=== PATIENT | female | born 1975 | race Caucasian/White ===

== ENCOUNTER → 2017-11-05 17:29 | Outpatient (CLI) | payer MEDICAID, SELFPAY ==
[2017-11-05 18:38] LABS: Free T3 2.3 pg/mL (2.18-3.98); T4 Free Direct 0.89 ng/dL (0.76-1.46); Thyroid Stim Hormone (TSH) 1.01 uIU/mL (0.358-3.74)
== END ==
PROVIDERS: Visit Provider Obstetrics & Gynecology
DX: N95.1 Menopausal and female climacteric states (principal); R63.5 Abnormal weight gain
CPT/HCPCS: 84439; 84443; 84481

== ENCOUNTER → 2017-11-22 08:08 | Outpatient (CLI) | payer MEDICAID, SELFPAY ==
--- NOTE | 2017-11-22 08:12 | HPBI_ITS ---
MAMMOGRAPHY - BILATERAL SCREENING REASON FOR EXAM: Female, 42 years old. Routine annual screening examination. PERTINENT HISTORY: Grandmother with breast cancer. Aunts with breast cancer. TECHNIQUE: Digital bilateral breast altagracia (3D mammographic acquisition) in the CC and MLO projections. 2-D mediolateral oblique (MLO) and craniocaudad (CC) views of both breasts were obtained. CAD: Full Field Digital Mammography with Computer Added Detection was performed. COMPARISON: Comparison is made with prior examination dated January 19, 2016 and January 17, 2015. FINDINGS: Breast Composition: The breasts are extremely dense, which lowers the sensitivity of mammography. There are no dominant masses or suspicious calcifications. A loop recorder device is seen in the deep central medial portion of the left breast. No other significant abnormalities are identified. There has been no significant change since the prior study. HPBI/SCREENING MAMM (CAD), BILAT IMPRESSION: Stable bilateral screening mammogram. Yearly follow-up mammogram recommended. (A) ASSESSMENT CATEGORY: BIRADS Category 2: Benign. A letter regarding these results will be sent to the patient by the facility within 30 days. Approximately 10% of breast cancers are not detected by mammography. A normal mammogram should not delay biopsy of a clinically suspicious abnormality. [id number] Electronically Signed: Oscar Jimenez MD at 8:15 EDT Tel [phone], Service support ,
== END ==
PROVIDERS: Family Provider Family Medicine; PCP Family Medicine; Visit Provider Obstetrics & Gynecology
DX: Z12.31 Encounter for screening mammogram for malignant neoplasm of breast (principal)
CPT/HCPCS: 77063; 77067

== ENCOUNTER → 2018-12-28 09:18 | Outpatient (CLI) | payer OTHER, SELFPAY ==
--- NOTE | 2018-12-28 09:22 | BI_ITS ---
MAMMOGRAPHY - BILATERAL DIAGNOSTIC REASON FOR EXAM: Female, 43 years old. Nine-month history of right sided breast lumps. PERTINENT HISTORY: Aunt with breast cancer. TECHNIQUE: Digital bilateral breast altagracia (3D mammographic acquisition) in the CC and MLO projections. 2-D mediolateral oblique (MLO) and craniocaudad (CC) views of both breasts were obtained. CAD: Full Field Digital Mammography with Computer Added Detection was performed. COMPARISON: Comparison is made with prior examination dated November 22, 2017 and January 19, 2016 FINDINGS: Breast Composition: The breasts are extremely dense, which lowers the sensitivity of mammography. A loop recorder device is seen in the deep mid medial portion of the left breast. This is unchanged. There now is evidence of a well-defined bilateral breast nodules suggestive of probable cysts. Ultrasound of both breasts is recommended for further evaluation. No other significant abnormalities are identified. BI/DIAG MAMM W/CAD, BILAT IMPRESSION: Bilateral breast nodules as described more prominent on the right side. Ultrasound of both breasts is recommended for further evaluation. ASSESSMENT CATEGORY: BIRADS Category 0: Incomplete. Need additional imaging evaluation. A letter regarding these results will be sent to the patient by the facility within 30 days. Approximately 10% of breast cancers are not detected by mammography. A normal mammogram should not delay biopsy of a clinically suspicious abnormality. Electronically Signed: Oscar Jimenez, at 11:06 EDT , Service support ,
--- NOTE | 2018-12-28 09:31 | US_ITS ---
STUDY: ULTRASOUND BREAST - RIGHT REASON FOR EXAM: Female, 43 years old. Bilateral breast nodules. TECHNIQUE: Axial and longitudinal images of the RIGHT breast were performed with a high resolution ultrasound transducer. COMPARISON: Comparison is made with prior mammogram done earlier today as well as prior ultrasound of both breasts dated January 26, 2016 and January 19, 2016. FINDINGS: RIGHT Breast: Multiple cysts are seen in the right breast. The largest cyst measures 2.6 cm x 1.8 cm x 0.7 cm. This is at the 10:00 position of the breast at 2 cm from the nipple. This corresponds to the palpable abnormality. IMPRESSION: Multiple breast cysts. Routine mammographic follow-up is recommended. ASSESSMENT CATEGORY: BIRADS Category 2: Benign. A letter regarding these results will be sent to the patient by the facility within 30 days. Electronically Signed: Oscar Jimenez, at 11:08 EDT , Service support , STUDY: ULTRASOUND BREAST - LEFT REASON FOR EXAM: Female, 43 years old. Palpable lump left breast. TECHNIQUE: Axial and longitudinal images of the LEFT breast were performed with a high resolution ultrasound transducer. COMPARISON: Comparison is made with prior mammogram done earlier today as well as prior ultrasound the left breast dated January 26, 2016. FINDINGS: LEFT Breast: Multiple cysts are seen. The largest measures 1.7 cm x 1.8 cm x 0.8 cm. This is at the 2:00 position of the breast at 4 cm from the nipple. US/Breast Complete Bilateral IMPRESSION: Multiple cysts. The largest measures 1.7 cm x 1.8 cm x 0.8 cm. ASSESSMENT CATEGORY: BIRADS Category 2: Benign. A letter regarding these results will be sent to the patient by the facility within 30 days. Electronically Signed: Oscar Jimenez, at 11:09 EDT , Service support ,
== END ==
PROVIDERS: Referring Provider Obstetrics & Gynecology; Visit Provider Obstetrics & Gynecology
DX: Z12.31 Encounter for screening mammogram for malignant neoplasm of breast (principal); N63.11 Unspecified lump in the right breast, upper outer quadrant
CPT/HCPCS: 76641; 77062; 77066; G0279

== ENCOUNTER 2025-03-10 10:31 | Emergency (ER) | payer MEDICAID, SELFPAY ==
[2025-03-10 10:33] VITALS: BP 147/88; PULSE 70; RESP 14; TEMP 36.7; O2SAT 100; BMI 29.2
--- NOTE | 2025-03-10 10:44 | EDS_ITS ---
HPI History of Present Illness Chief Complaint: General Illness Narrative Narrative: Patient is a 49-year-old female who presented to the emergency department the chief complaint of not feeling well overall. Patient states that she was in her IOP class and she noted that she told the individuals there that she had not been feeling well therefore they advised her to come here to the emergency department. Patient states that yesterday she woke up and felt like her left arm was heavier than normal but notes that she attributed this to her arms always having weird numbness and tingling secondary to disc issues in her neck she states. She states that she also has been having some left sided rib/flank pain and elevated blood pressure recently. Patient states that she had a Vivitrol injection back on the sixth of this month and states that ever since then she has had a headache that has been constant. States that this is unchanged and does not want a thing for her headache here in the emergency department. Patient denies any history of blood clots denies any recent travel history. [facility] Home Medications ?Medication ?Instructions ?Recorded ?Last Taken ?Type diluent,naltrexone microsphere IM QMONTH 03/10/25 06/0 03/09 History Allergy/AdvReac Type Severity Reaction Status Date / Time cephalexin monohydrate (From Allergy thinks a Verified 03/10/25 10:33 Keflex) Rash metronidazole (From Flagyl) Allergy Unknown Verified 03/10/25 10:33 Sulfa (Sulfonamide Allergy thinks a Verified 03/10/25 10:33 Antibiotics) rash Social History Smoking Status: Current every day smoker tobacco type: cigarettes ROS ROS ED ROS Narrative Constitutional: Denies fevers, chills, lightheadedness, dizziness Eyes: Denies double vision blurry vision changes vision Cardiovascular: Denies chest pain or palpitations Respiratory: Denies coughing wheezing shortness of breath Abdomen: Denies abdominal pain nausea vomit diarrhea : Denies urinary symptoms Neurological: Denies numbness, wheeze, tingling Musculoskeletal: Denies back pain Skin: Denies any rashes or lesions EXAM Physical Exam Narrative Exam Narrative: General: Patient was lying in bed rest comfortably do not appear to be acute distress Head: Atraumatic, normocephalic Eyes: PERRL bilaterally, EOMI bilateral, no conjunctival injection noted Neck: Soft, supple, trachea midline Cardiovascular: Regular in rhythm no murmurs gallops rubs noted Respiratory: Clear to auscultation bilaterally no rales rhonchi or wheezes noted Abdomen: Soft, nondistended, no tenderness palpation Extremities: +5/5 strength noted in the bilateral upper and lower extremities, radial pulses +2/4 in the bilateral extremities, no pedal edema on exam Neurological: Patient following commands knew that she was at [facility] year is 2024 sensation grossly intact. Patient completed finger-nose testing bilaterally without any difficulty. NIH of 0 GCS 15 Skin: Warm, dry, tact no rashes or lesions noted Const Vital Signs: 03/10/25 10:33 03/10/25 10:43 03/10/25 11:11 Temperature 98.1 F Temperature Source Oral Pulse Rate 70 Respiratory Rate 14 Respiratory Effort Normal Non-Labored Respiratory Pattern Normal Blood Pressure 147/88 H Blood Pressure Mean 107 Pulse Ox 100 Oxygen Delivery Method Room Air Room Air 03/10/25 11:17 03/10/25 13:00 Temperature Temperature Source Pulse Rate 81 76 Respiratory Rate 16 14 Respiratory Effort Respiratory Pattern Blood Pressure 134/93 H 119/79 Blood Pressure Mean 106 92 Pulse Ox 99 98 Oxygen Delivery Method Room Air Room Air MDM MDM MDM Narrative Medical decision making narrative: Patient is a 41-year-old female who presented to the emergency department the chief complaint of left rib/back pain left arm heaviness and not feeling well overall with concern of hypertension for the last several days as well. On the differential diagnosis includes but not limited to intracranial hemorrhage, ischemic stroke, central venous sinus thrombosis, ACS, cervical radiculopathy. Once workup is obtained reviewed she will be reevaluated. Once again the patient stated that she woke up with her symptoms yesterday morning and are unchanged. Far[place]ault Score (Revised) for Pulmonary Embolism from [email or web address] on 03/10/2025 All calculations should be rechecked by clinician prior to use RESULT SUMMARY: 3 points Low risk group: 7-9% incidence of PE from several studies. INPUTS: Age >65 ?> 0 = No Previous DVT or PE ?> 0 = No Surgery (under general anesthesia) or lower limb fracture in past month ?> 0 = No Active malignant condition ?> 0 = No Unilateral lower limb pain ?> 0 = No Hemoptysis ?> 0 = No Heart rate ?> 3 = 75-94 Pain on lower limb palpation and unilateral edema ?> 0 = No Patient's CBC reviewed showed no evidence of cytosis white blood count 10.1, he was 14, plate count within to be 400. Patient sodium was normal at 139, potassium of 4.5, creatinine normal at 0.76. Patient's AST and ALT are 21 and 18 respectively, troponin was less than 6 with a delta troponin of less than 6. Patient lipase normal at 19. Patient's EKG reviewed showed sinus rhythm with a rate of 78 bpm with IN interval 152. Patient's chest x-ray reviewed by myself and by radiology showed no acute cardiopulmonary processes. Patient CT head and brain without contrast showed no acute intracranial pathology. Reevaluation the patient she is feeling better she would like to go home at this point time. Patient was vies to return with worsening symptoms or any concerns. She is vies follow-up with her doctor in outpatient setting all question concerns answered she was discharged home in stable condition Lab Data Labs: Laboratory Results - last 24 hr 03/10/25 03/10/25 03/10/25 10:55 11:35 12:35 WBC 10.1 RBC 4.55 Hgb 14.0 Hct 41.8 MCV 91.9 MCH 30.8 MCHC 33.5 RDW Std Deviation 44.6 H RDW Coeff of Lauren 13.2 Plt Count 400 MPV 9.0 Immature Gran % (Auto) 0.600 Neut % (Auto) 66.5 Lymph % (Auto) 24.4 Mcdowell % (Auto) 5.3 Eos % (Auto) 2.4 Baso % (Auto) 0.8 Absolute Neuts (auto) 6.7 Absolute Lymphs (auto) 2.45 Nucleated RBC % 0 Sodium 139 Potassium 4.5 Chloride 104 Carbon Dioxide 24.2 Anion Gap 11 BUN 14 Creatinine 0.76 Estim Creat Clear Calc 101.31 Est GFR (MDRD) Non-Af 96 BUN/Creatinine Ratio 18.0 Glucose 104 H Calcium 9.5 Total Bilirubin 0.48 Direct Bilirubin 0.17 AST 21 ALT 18 Alkaline Phosphatase 62 Troponin T High Sens < 6 Troponin T Hi Sens 2 Hr < 6 Total Protein 7.2 Albumin 4.4 Globulin 2.8 Lipase 19 Radiography Diagnostic Testing: Clinical Impression(s) from Imaging Studies Brain CT 03/10/25 11:26 IMPRESSION: No acute intracranial pathology. Results were communicated to Dr. Tim by Dr. Beaver at the time of dictation. Reading [facility] Chest X-Ray 03/10/25 11:28 IMPRESSION: Lungs appear clear throughout. No pleural effusion or pneumothorax is noted. The cardiomediastinal silhouette is within the normal range. No significant osseous abnormality is seen. Negative examination. Reading Location: [place] [id number] Discharge Plan Triage Chief Complaint: General Illness ED Provider: Santos Tim Dx/Rx/DC Orders Clinical Impression: Chest pain Prescriptions: No Action diluent,naltrexone microsphere [Diluent For Vivitrol] IM QMONTH Primary Care Provider: Care Physician,No Primary Referrals: Care Physician,No Primary [Primary Care Provider] - Erum Moore, [employer] [[facility]] - Activity Restrictions/Additional Instructions: Follow-up with your doctor in the outpatient setting. Return with worsening symptoms or other concerns. Your blood work did not show any acute findings today here and your CT of your head and your chest x-ray did not show any acute findings either. Print Language: Albanian Disposition Disposition: Home, Self Care
[2025-03-10] MEDS: 0.9% Normal Saline (1000mL) 1,000 ML 999 ML IV (11:07)
[2025-03-10 11:17] VITALS: BP 134/93; PULSE 81; RESP 16; O2SAT 99
--- NOTE | 2025-03-10 11:26 | CT_ITS ---
EXAM: NONCONTRAST CT SCAN OF THE HEAD CLINICAL HISTORY: Left arm heaviness COMPARISON: None TECHNIQUE: Serial axial series through the head were obtained without contrast. 2-D coronal and sagittal reformats were then obtained. DLP: 846.73 mGycm FINDINGS: Brain: There is no acute large territorial infarct, intracranial hemorrhage, midline shift or mass effect. The sella and pineal gland regions appear unremarkable. There is no evidence of cerebellar tonsillar herniation. Ventricles: There is no acute hydrocephalus. Basilar cisterns are patent. Paranasal sinuses: Well-aerated Mastoid air cells: Well-aerated. Calvarium: The bony calvarium is intact. Orbits: The bilateral globes are symmetric, without retrobulbar compressive mass lesion or hemorrhage. CT/Brain/Head without Contrast IMPRESSION: No acute intracranial pathology. Results were communicated to Dr. Tim by Dr. Beaver at the time of dictat ion. Reading Location: [facility]
--- NOTE | 2025-03-10 11:28 | RAD_ITS ---
PROCEDURE: CHEST 1 VIEW (PORTABLE) 03/10/2025 REASON FOR EXAM: CHEST PAIN TECHNIQUE: Frontal view of the chest. COMPARISON: None provided. RAD/Chest 1 View (Portable) IMPRESSION: Lungs appear clear throughout. No pleural effusion or pneumothorax is noted. The cardiomediastinal silhouette is within the normal range. No significant osseous abnormality is seen. Negative examination. Reading Location: [place] [id number]
[2025-03-10 11:32] LABS: AST(SGOT) 21 U/L (<=31); Alanine Aminotransfer ALT/SGPT 18 U/L (<=34); Albumin, Serum 4.4 g/dL (3.5-5.0); Alkaline Phosphatase 62 U/L (35-104); Anion Gap 11 (5-15); BUN 14 mg/dL (4-19); Bilirubin, Direct 0.17 mg/dL (0.00-0.30); Calcium,Total 9.5 mg/dL (7.6-11.0); Carbon Dioxide 24.2 mmol/L (21.0-32.0); Chloride 104 mmol/L (98-108); Creatinine, Serum 0.76 mg/dL (0.70-1.20); EST Glomerular Filtration Rate 96 (>60); Estimated Creatinine Clearance 101.31 ml/min (50-250); Globulin 2.8 g/dL (2.2-4.2); Glucose 104 mg/dL (70-99); Lipase 19 U/L (13-75); Potassium 4.5 mmol/L (3.3-5.1); Protein, Total 7.2 g/dL (5.9-8.4); Sodium Level 139 mmol/L (133-145); Total Bilirubin 0.48 mg/dL (0.00-1.30); Troponin T High Sensitivity < 6 ng/L (<=14)
[2025-03-10 12:15] LABS: Absolute Lymphocyte Count 2.45 X10^3/uL (0.83-4.51); Absolute Neutrophil Count 6.7 X10^3/uL (2.0-7.7); Basophil# 0.08 X10^3/uL; Basophil% 0.8 % (0-1); Eosinophil# 0.24 X10^3/uL; Eosinophils% 2.4 % (0-5); Hematocrit 41.8 % (37-47); Lymphocyte # 2.45 X10^3/ul (0.83-4.51); Lymphocyte % 24.4 % (19-41); Mean Corp Hgb Conc 33.5 g/dL (32-36); Mean Corpuscular Hgb 30.8 pg (27.0-32.0); Mean Corpuscular Volume 91.9 fL (81-99); Monocyte# 0.53 X10^3/uL; Monocyte% 5.3 % (0-10); NRBC Flagged by Analyzer 0 % (0-5); Neutrophil # 6.69 X10^3/uL (2.7-7.7); Neutrophil % 66.5 % (47-70); Platelet Count 400 K/mm3 (150-450); RBC Distribution Width CV 13.2 % (11.6-14.6); RBC Distribution Width SD 44.6 fl (35.1-43.9); Red Blood Count 4.55 M/mm3 (4.2-5.4); White Blood Count 10.1 K/mm3 (4.4-11.0)
[2025-03-10 13:00] VITALS: BP 119/79; PULSE 76; RESP 14; O2SAT 98
[2025-03-10 13:18] LABS: Troponin T High Sens 2 HR < 6 ng/L (<=14)
--- NOTE | 2025-03-10 14:10 | CM.ED ---
Social Work Reason for visit: No PCP Patient confirmed that she does not currently have a PCP, states she rarely goes to the doctor and does not feel that she needs one at this time. Resources offered, patient declined. No further needs identified at this time. Ada Dickinson, SCRAPER TENDER, [employer]
[2025-03-10 14:15] VITALS: BP 149/78; PULSE 68; RESP 16; TEMP 37.1; O2SAT 98
--- OUTSIDE RECORDS SUMMARY | 2025-03-10 21:18 | XMS RPT_ITS | CCD ---
Author Organization [facility] Inform ion Partnership [facility] Care Team Providers Care Sheet Metal Insulator Name Role Phone PK DEL VALLE Unavailable Unavailable FELISA GHOTRA Unavailable Unavailable AMADOU CAVANAUGH Unavailable Unavailable FELISA GHOTRA Unavailable Unavailable Manpreet Wisdom Attending Unavailable Manpreet Wisdom Referring Unavailable Primay Care Physicia, No Primary Care Unavail able PHYSICIAN, NONE Primary Care Unavailable LINA PLATT MD Attending Unavailable Care Physician, No Primary Primary Care Provider Unavailable Dr. Santos Tim DO Emergency Provider Allergies Allergy Classification Reported Allergen(s) Allergy Type Date of Onset Reaction(s) Facility (2 sources) Cephalexin Drug Allergy 6 thinks a Rash [facility] Repository (1 source) metroNIDAZOLE Drug Allergy 6 [facility] Repository (1 source) Sulfonamides (Antibiotic) Drug allergy (disorder) 6 [facility] Repository (1 source) metroNIDAZOLE Drug Allergy 5 Unknown [facility] (1 source) Sulfonamides (Antibiotic) Allergy to substance 5 thinks a rash [facility] Medications Current Medications Medication Drug Class(es) Dates Sig (Normalized) Sig (Original) diluent,naltrexone microsphere (1 source) Start: 03-10-2025 diluent,naltrexone microsphere Active IM EVERY MONTH March 10, 2025 12:00am Completed/Discontinued Medications Medication Drug Class(es) Dates Sig (Normalized) Sig (Original) acetaminophen 325 mg / HYDROcodone bitartrate 5 mg oral tablet (1 source) Opioid Agonist Start: 03-09-2016 End: 03-10-2025 Hydrocodone-Acetam inophen 1 TABLET tablet Discontinued 1 {tbl} PO EVERY 6 HOURS NEEDED as needed for Pain March 09, 2016 12:00am March 10, 2025 11:42am causes drowsiness acetaminophen 325 mg / oxyCODONE hydrochloride 5 mg oral tablet (1 source) Opioid Agonist Start: 05-24-2015 End: 06-04-2015 Oxycodone-Acetamin ophen 1 TABLET tablet Discontinued 2 {tbl} PO EVERY 4 HOURS NEEDED as needed for Moderate-Severe pain May 24, 2015 12:00am June 04, 2015 8:45am ALPRAZolam 1 mg oral tablet (1 source) Benzodiazepine Start: 07-24-2015 End: 03-10-2025 take 1 tablet by mouth at bedtime as needed for anxiety Alprazolam (Xanax) 1 MG tablet Discontinued 1 mg PO AT BEDTIME NEEDED as needed for Anxiety July 24, 2015 1:00am March 10, 2025 11:43am 168 hr buprenorphine 0.02 mg/hr transdermal system (1 source) Partial Opioid Agonist Start: 03-09-2016 End: 03-10-2025 Buprenorphine (Butrans 20 Mcg/Hr) 1 EACH patch weekly Discontinued 10 ug TRANSDERM. March 09, 2016 12:00am March 10, 2025 11:42am Problems Problem Classification Problem Date Documented Da te Episodic/Chronic Abdominal pain (1 source) Abdominal pain; Translations: [Unspecified abdominal pain] 07-25-2015 Episodic E Codes: Fall (1 source) Fall on same level from slipping, tripping and stumbling without subsequent striking against object, initial encounter; Translations: [Fall on same level from slipping, tripping and stumbling without subsequent striking against object, initial encounter] Onset: 12-28-2024 Episodic E Codes: Place of occurrence (1 source) Unspecified place in unspecified non-institutional (private) residence as the place of occurrence of the external cause; Translations: [Unspecified place in unspecified non-institutional (private) residence as the place of occurrence of the external cause] Onset: 12-28-2024 Episodic Inflammatory diseases of female pelvic organs (1 source) Abscess of female pelvis; Translations: [Female pelvic inflammatory disease, unspecified] 07-24-2015 Episodic Menstrual disorders (2 sources) Menorrhagia; Translations: [Excessive and frequent menstruation with regular cycle] 07-24-2015 Chronic Nonspecific chest pain (2 sources) Left sided chest pain; Translations: [Other chest pain] 10-26-2015 Episodic Other female genital disorders (1 source) Cyst of uterine adnexa; Translations: [Unspecified condition associated with female genital organs and menstrual cycle] 07-25-2015 Episodic Other female genital disorders (1 source) Dysplasia of cervix; Translations: [Dysplasia of cervix uteri, unspecified] 05-24-2015 Episodic Other nervous system disorders (1 source) Transient paresthesia; Translations: [Paresthesia of skin] 10-26-2015 Episodic Sprains and strains (2 sources) Sprain of unspecified ligament of left ankle, initial encounter; Translations: [Sprain of unspecified ligament of left ankle, initial encounter] Onset: 12-28-2024 Episodic Substance-related disorders (1 source) Nicotine dependence, unspecified, uncomplicated; Translations: [Nicotine dependence, unspecified, uncomplicated] Onset: 12-28-2024 Chronic Superficial injury; contusion (2 sources) Contusion of right foot, initial encounter; Translations: [Contusion of right foot, initial encounter] Onset: 12-28-2024 Episodic Results Test Name Value Interpretation Reference Range Facility Absolute lymphocyte countOrd ered By: Santos Tim on 03-10-2025 Lymphocytes Auto (Unsp spec) [#/Vol] 2.45 10*3/uL 0.83-4.51 [facility] Absolute neutrophil countOrd ered By: Santos Tim on 03-10-2025 Neutrophils (Bld) [#/Vol] 6.7 10*3/uL 2.0-7.7 [facility] Anion gap in Serum or Plasma Ordered By: Santos Tim on 03-10-2025 Anion gap [Moles/Vol] 11 mmol/L 5-15 [facility] Automated lymphocyte count a s percentage of total leukocytesOrdered By: Santos Tim on 03-10-2025 Lymphocytes/100 WBC Auto (Unsp spec) 24.4 % 19-41 [facility] BUN/creatinine ratioOrdered By: Santos Tim on 03-10-2025 Urea nitrogen/Creatinine [Mass ratio] 18.0 mg/mg 10-20 [facility] Basophil percentageOrdered B y: Santos Tim on 03-10-2025 Basophils/100 WBC (Bld) 0.8 % 0-1 [facility] Bilirubin directOrdered By: Santos Tim on 03-10-2025 Bilirubin.direct [Mass/Vol] 0.17 mg/dL 0.00-0.30 [facility] Bilirubin, totalOrdered By: Santos Tim on 03-10-2025 Bilirubin [Mass/Vol] 0.48 mg/dL 0.00-1.30 [facility] Carbon dioxide, total [Moles /volume] in Central venous bloodOrdered By: Santos Tim on 03-10-2025 CO2 [Moles/Vol] 24.2 mmol/L 21.0-32.0 [facility] Chloride assayOrdered By: Rickie Tim on 03-10-2025 Chloride [Moles/Vol] 104 mmol/L 98-108 [facility] Eosinophil percentageOrdered By: Santos Tim on 03-10-2025 Eosinophils/100 WBC (Bld) 2.4 % 0-5 [facility] Erythrocyte distribution wid th ratioOrdered By: Santos Tim on 03-10-2025 Erythrocyte distribution width (RBC) [Ratio] 13.2 % 11.6-14.6 [facility] Erythrocyte distribution wid th standard deviationOrdered By: Santos Tim on 03-10-2025 Erythrocyte distribution width (RBC) [Ratio] 44.6 fl High 35.1-43.9 [facility] Glomerular filtration rate ( GFR) estimation/1.73 sq m using serum, plasma, or whole bOrdered By: Santos Tim on 03-10-2025 GFR/1.73 sq M.predicted among non-blacks MDRD (S/P/Bld) [Vol rate/Area] 96 mL/min/{1.73_m2} >60 [facility] Comment on above: mL/min/1.73m2 CKD-EP I Creatinine Equation (2020) Hematocrit Auto (Bld) [Volum e fraction]Ordered By: Santos Tim on 03-10-2025 Hematocrit (Bld) [Volume fraction] 41.8 % 37-47 [facility] Hemoglobin measurementOrdere d By: Santos Tim on 03-10-2025 Hemoglobin (Bld) [Mass/Vol] 14.0 g/dL 12.0-15.0 [facility] Immature granulocytes/100 WB C Auto (Bld)Ordered By: Santos Tim on 03-10-2025 Immature granulocytes/100 WBC (Bld) 0.600 % 0.0-0.9 [facility] Comment on above: IG% - Immature Granu locytes (promyelocytes, myelocytes and metamyelocytes) > 1% indicates that a LEFT SHIFT is Present. Laboratory - Chemistry and C hemistry - challengeOrdered By: Santos Tim on 03-10-2025 AST [Catalytic activity/Vol] 21 U/L <32 [facility] Lipase measurementOrdered By : Santos Tim on 03-10-2025 Lipase [Catalytic activity/Vol] 19 U/L 13-75 [facility] Comment on above: Please note:LIPASE r evised reference range effective 22. New Lipase methodology. Expected to produce lower values than the previous assay method. NEW Reference Range: 13 - 75 U/L MCV (mean corpuscular volume ) determinationOrdered By: Santos Tim on 03-10-2025 MCV (RBC) [Entitic vol] 91.9 fL 81-99 [facility] Mean corpuscular hemoglobin (MCH) determinationOrdered By: Santos Tim on 03-10-2025 MCH (RBC) [Entitic mass] 30.8 pg 27.0-32.0 [facility] Mean corpuscular hemoglobin concentration (MCHC) determinationOrdered By: Santos Tim on 03-10-2025 MCHC (RBC) [Mass/Vol] 33.5 g/dL 32-36 [facility] Mean platelet volume determi nationOrdered By: Santos Tim on 03-10-2025 Platelet mean volume (Bld) [Entitic vol] 9.0 fL 6.2-12.0 [facility] Monocyte percentageOrdered B y: Santos Tim on 03-10-2025 Monocytes/100 WBC (Bld) 5.3 % 0-10 [facility] Neutrophil percentageOrdered By: Santos Tim on 03-10-2025 Neutrophils/100 WBC (Bld) 66.5 % 47-70 [facility] Nucleated red blood cell per centageOrdered By: Santos Tim on 03-10-2025 Nucleated RBC/100 WBC (Bld) [Ratio] 0 % 0-5 [facility] Platelet countOrdered By: Rickie Tim on 03-10-2025 Platelets (Bld) [#/Vol] 400 10*3/uL 150-450 [facility] Potassium measurement (mass/ volume)Ordered By: Santos Tim on 03-10-2025 Potassium (Unsp spec) [Mass/Vol] 4.5 mmol/L 3.3-5.1 [facility] RBC Auto (Bld) [#/Vol]Ordere d By: Santos Tim on 03-10-2025 RBC (Bld) [#/Vol] 4.55 10*6/uL 4.2-5.4 [facility] Serum creatinine measurement (mass/volume)Ordered By: Santos Tim on 03-10-2025 Creatinine [Mass/Vol] 0.76 mg/dL 0.70-1.20 [facility] Serum globulin measurementOr dered By: Santos Tim on 03-10-2025 Globulin (S) [Mass/Vol] 2.8 g/dL 2.2-4.2 [facility] Serum glucose measurement (m ass/volume)Ordered By: Santos Tim on 03-10-2025 Glucose [Mass/Vol] 104 mg/dL High 70-99 [facility] Serum or plasma alanine jamil otransferase (ALT) measurementOrdered By: Santos Tim on 03-10-2025 ALT [Catalytic activity/Vol] 18 U/L <35 [facility] Serum or plasma albumin nadira urement (mass/volume)Ordered By: Santos Tim on 03-10-2025 Albumin [Mass/Vol] 4.4 g/dL 3.5-5.0 [facility] Serum or plasma alkaline salas sphatase measurementOrdered By: Santos Tim on 03-10-2025 ALP [Catalytic activity/Vol] 62 U/L 35-104 [facility] Serum or plasma calcium nadira urement (mass/volume)Ordered By: Santos Tim on 03-10-2025 Calcium [Mass/Vol] 9.5 mg/dL 7.6-11.0 [facility] Serum or plasma urea nitroge n measurement (mass/volume)Ordered By: Santos Tim on 03-10-2025 Urea nitrogen [Mass/Vol] 14 mg/dL 4-19 [facility] Sodium levelOrdered By: Hira Tim on 03-10-2025 Sodium [Moles/Vol] 139 mmol/L 133-145 [facility] Total proteinOrdered By: James Tim on 03-10-2025 Protein [Mass/Vol] 7.2 g/dL 5.9-8.4 [facility] Troponin T.cardiac [Mass/vol ume] in Serum or Plasma by High sensitivity methodOrdered By: Santos Tim on 03-10-2025 Troponin T.cardiac High sensitivity method [Mass/Vol] < 6 ng/L <14 [facility] Troponin T.cardiac High sensitivity method [Mass/Vol] < 6 ng/L <14 [facility] White blood cell (WBC) count Ordered By: Santos Tim on 03-10-2025 WBC (Bld) [#/Vol] 10.1 10*3/uL 4.4-11.0 [facility] XR ANKLE MINIMUM 3 VIEWS [facility] 12-28-2024 XR ANKLE MINIMUM 3 VIEWS LEFT ORIGINAL EXAMINATION: THREE XRAY VIEWS OF THE LEFT ANKLE; THREE XRAY VIEWS OF THE RIGHT FOOT 12/28/2024 2:24 pm; 12/28/2024 2:26 pm COMPARISON: None. HISTORY: ORDERING SYSTEM PROVIDED HISTORY: Reason for Exam: pain FINDINGS: Left ankle: Distal tibial screws. Fibular pin. Focal subchondral irregularity of the medial tibial plafond and which could be related to prior hardware versus chronic fracture deformity. Diffuse soft tissue swelling. Retrocalcaneal enthesopathy. No acute fracture or dislocation. Right foot: Small plantar calcaneal spur. Bipartite medial hallux sesamoid. No acute fracture, subluxation or osseous abnormality. No foreign bodies. IMPRESSION: No acute pathology. Incidental findings as above. Interpreted by: Mckenna Villarreal Preliminary Report By: Mckenna Villarreal Electronically signed By Mckenna Villarreal Dictated Date: 12/28/2024 2:33:06 PM Prelim Date: 12/28/2024 2:35:29 PM Sign Date: 12/28/2024 2:35:29 PM Ordering Provider: JCARLOS ALLEN [facility] XR FOOT MINIMUM 3 VIEWS [facility] 12-28-2024 XR FOOT MINIMUM 3 VIEWS RIGHT ORIGINAL EXAMINATION: THREE XRAY VIEWS OF THE LEFT ANKLE; THREE XRAY VIEWS OF THE RIGHT FOOT 12/28/2024 2:24 pm; 12/28/2024 2:26 pm COMPARISON: None. HISTORY: ORDERING SYSTEM PROVIDED HISTORY: Reason for Exam: pain FINDINGS: Left ankle: Distal tibial screws. Fibular pin. Focal subchondral irregularity of the medial tibial plafond and which could be related to prior hardware versus chronic fracture deformity. Diffuse soft tissue swelling. Retrocalcaneal enthesopathy. No acute fracture or dislocation. Right foot: Small plantar calcaneal spur. Bipartite medial hallux sesamoid. No acute fracture, subluxation or osseous abnormality. No foreign bodies. IMPRESSION: No acute pathology. Incidental findings as above. Interpreted by: Mckenna Villarreal Preliminary Report By: Mckenna Villarreal Electronically signed By Mckenna Villarreal Dictated Date: 12/28/2024 2:33:06 PM Prelim Date: 12/28/2024 2:35:29 PM Sign Date: 12/28/2024 2:35:29 PM Ordering Provider: JCARLOS Alvarado [facility] Breast Complete Bilateralon 12-28-2018 Breast Complete Bilateral [facility] Imaging Services [address] [place] [id number] Breast Complete Bilateral MR#: [id number] Acct: [id number] Name: CHANDANA JETT Rep #: [id number] : 1975 F 43 From: Oscar Jimenez MD PCP: Care Physician, No Primary Status: REG CLI Study: Breast Complete Bilateral Date of Exam: 12/28/18 Exam# [id number] Ordering Dr: Manpreet Wisdom MD STUDY: ULTRASOUND BREAST - RIGHT REASON FOR EXAM: Female, 43 years old. Bilateral breast nodules. TECHNIQUE: Axial and longitudinal images of the RIGHT breast were performed with a high resolution ultrasound transducer. COMPARISON: Comparison is made with prior mammogram done earlier today as well as prior ultrasound of both breasts dated January 26, 2016 and January 19, 2016. FINDINGS: RIGHT Breast: Multiple cysts are seen in the right breast. The largest cyst measures 2.6 cm x 1.8 cm x 0.7 cm. This is at the 10:00 position of the breast at 2 cm from the nipple. This corresponds to the palpable abnormality. IMPRESSION: Multiple breast cysts. Routine mammographic follow-up is recommended. ASSESSMENT CATEGORY: BIRADS Category 2: Benign. A letter regarding these results will be sent to the patient by the facility within 30 days. Electronically Signed: Oscar Jimenez, at 11:08 EDT , Service support , STUDY: ULTRASOUND BREAST - LEFT REASON FOR EXAM: Female, 43 years old. Palpable lump left breast. TECHNIQUE: Axial and longitudinal images of the LEFT breast were performed with a high resolution ultrasound transducer. COMPARISON: Comparison is made with prior mammogram done earlier today as well as prior ultrasound the left breast dated January 26, 2016. FINDINGS: LEFT Breast: Multiple cysts are seen. The largest measures 1.7 cm x 1.8 cm x 0.8 cm. This is at the 2:00 position of the breast at 4 cm from the nipple. US/Breast Complete Bilateral IMPRESSION: Multiple cysts. The largest measures 1.7 cm x 1.8 cm x 0.8 cm. ASSESSMENT CATEGORY: BIRADS Category 2: Benign. A letter regarding these results will be sent to the patient by the facility within 30 days. Electronically Signed: Oscar Jimenez, at 11:09 EDT , Service support , CC: No Primary Care Physician; Manpreet Wisdom MD Noteman: Signed Normal [facility] DIAG MAMM W/CAD, BILATon DIAG MAMM W/CAD, BILAT [facility] Imaging Services [address] [place] [address] DIAG MAMM W/CAD, BILAT MR#: [id number] Acct: [id number] Name: CHANDANA JETT Rep #: [id number] : 1975 F 43 From: Oscar Jimenez MD PCP: Care Physician, No Primary Status: REG CLI Study: DIAG MAMM W/CAD, BILAT Date of Exam: 12/28/18 Exam# [id number] Ordering Dr: Manpreet Wisdom MD MAMMOGRAPHY - BILATERAL DIAGNOSTIC REASON FOR EXAM: Female, 43 years old. Nine-month history of right sided breast lumps. PERTINENT HISTORY: Aunt with breast cancer. TECHNIQUE: Digital bilateral breast altagracia (3D mammographic acquisition) in the CC and MLO projections. 2-D mediolateral oblique (MLO) and craniocaudad (CC) views of both breasts were obtained. CAD: Full Field Digital Mammography with Computer Added Detection was performed. COMPARISON: Comparison is made with prior examination dated November 22, 2017 and January 19, 2016 FINDINGS: Breast Composition: The breasts are extremely dense, which lowers the sensitivity of mammography. A loop recorder device is seen in the deep mid medial portion of the left breast. This is unchanged. There now is evidence of a well-defined bilateral breast nodules suggestive of probable cysts. Ultrasound of both breasts is recommended for further evaluation. No other significant abnormalities are identified. BI/DIAG MAMM W/CAD, BILAT IMPRESSION: Bilateral breast nodules as described more prominent on the right side. Ultrasound of both breasts is recommended for further evaluation. ASSESSMENT CATEGORY: BIRADS Category 0: Incomplete. Need additional imaging evaluation. A letter regarding these results will be sent to the patient by the facility within 30 days. Approximately 10% of breast cancers are not detected by mammography. A normal mammogram should not delay biopsy of a clinically suspicious abnormality. Electronically Signed: Oscar Jimenez, at 11:06 EDT , Service support , CC: No Primary Care Physician; Manpreet Wisdom MD Noteman: Signed Normal [facility] Emergency Room Note on 07-14-2017 [facility] Note Normal [facility] ([place]) Patient Summary Documentson 07-14-2017 Patient Summary Documents Normal [facility]) XR COCCYX MINIMUM 2 VIEWSon 07-14-2017 XR COCCYX MINIMUM 2 VIEWS ORIGINALXR COCCYX MINIMUM 2 VIEWS 3 views CLINICAL STATEMENT: fall/ Pain, fell down steps 3 days ago, pain in the low back and tailbone area Comparison: None FINDINGS:No acute fracture or subluxation. The visualized sacroiliac joints and sacral alae are symmetric. Degenerative changes of the pubis symphysis are noted. IMPRESSION: No acute radiographic finding. I have personally reviewed the images of this examination and agree with the resident's findings and interpretation. Interpreted By: Jovanna Quick MDPreliminary Report By: Gale Colmenares DOElectronically Signed By: Jovanna Quick MD Dictated Date: 07/14/2017 9:53:57 AM Prelim Date: 07/14/2017 9:55:58 AM Sign Date: 07/14/2017 10:01:55 AM Normal [facility] ([place]) CT HEAD OR BRAIN W/O CONTRAS Ton 05-18-2017 CT HEAD OR BRAIN W/O CONTRAST ORIGINALCT HEAD OR BRAIN W/O CONTRAST Clinical Statement: Hit head 2 days ago, subsequent fall onto concrete floor, questionable loss of consciousness, persistent headache, nausea TECHNIQUE: Axial CT images from skull base to vertex without IV contrast. This exam was performed according to our departmental dose optimization program, and includes the following measures where applicable: automated exposure control, adjustment of the mAs and/or kVp according to patient size and/or exam, and an iterative reconstruction algorithm. COMPARISON: None. FINDINGS: There is no intracranial hemorrhage, mass, mass effect or abnormal extra-axial fluid collection. No CT evidence for acute infarction. The density in the larger dural venous sinuses is grossly normal. The ventricles are normal. The skull base and calvarium demonstrate no abnormality. The included paranasal sinuses and mastoid air cells are clear. IMPRESSION: No acute intracranial findings. I have personally reviewed the images of this examination and agree with the resident's findings and interpretation. Interpreted By: Zeferino Fernandoreliminary Report By: Tobias Ascencio DOElectronically Signed By: Zeferino Fernando MD Dictated Date: 05/18/2017 8:24:07 PM Prelim Date: 05/18/2017 8:31:23 PM Sign Date: 05/18/2017 8:43:28 PM Normal [facility] ([place]) CT SPINE CERVICAL W/O CONTRA STon 05-18-2017 CT SPINE CERVICAL W/O CONTRAST ORIGINALCT SPINE CERVICAL W/O CONTRAST CLINICAL STATEMENT: Pain, hit head 2 days ago and fell onto concrete floor TECHNIQUE: Multiple-row detector helical CT examination of the cervical spine without IV contrast. Axial, sagittal, and coronal reconstructed images. This exam was performed according to our departmental dose optimization program, and includes the following measures where applicable: automated exposure control, adjustment of the mAs and/or kVp according to patient size and/or exam, and an iterative reconstruction algorithm. COMPARISON: None. FINDINGS: No fracture or traumatic malalignment. Vertebral body heights are maintained. No aggressive osseous lesions are identified. Paraseptal emphysema and scarring noted in the lung apices. The prevertebral and paraspinal soft tissues demonstrate no acute abnormality. IMPRESSION: No acute fracture or traumatic malalignment. I have personally reviewed the images of this examination and agree with the resident's findings and interpretation. Interpreted By: Zeferino Fernandoiminary Report By: Tobias Ascencioically Signed By: Zeferino Fernando MD Dictated Date: 05/18/2017 8:35:21 PM Prelim Date: 05/18/2017 8:37:46 PM Sign Date: 05/18/2017 9:16:08 PM Normal [facility] ([place]) [facility] Note on 05-18-2017 [facility] Note Normal [facility] ([place]) Patient Summary Documentson 05-18-2017 Patient Summary Documents Normal [facility] ([place]) Vital Signs Date Time Vital Sign Value Performing Clinician Yasmin mccarty 03-10-2025 14:15-0400 Body temperature 98.7 [degF] No Primary Care Physician [facility] 03-10-2025 14:15-0400 Diastolic blood pressure 78 mm[Hg] No Primary Care Physician [facility] 03-10-2025 14:15-0400 Heart rate 68 /min No Primary Care Physician [facility] 03-10-2025 14:15-0400 Respiratory rate 16 /min No Primary Care Physician [facility] 03-10-2025 14:15-0400 SaO2% (BldA) [Mass fraction] 98 % No Primary Care Physician [facility] 03-10-2025 14:15-0400 Systolic blood pressure 149 mm[Hg] No Primary Care Physician [facility] 03-10-2025 10:33-0400 Body height 170.18 cm No Primary Care Physician [facility] 03-10-2025 10:33-0400 Body mass index (BMI) [Ratio] 29.2 kg/m2 No Primary Care Physician [facility] 03-10-2025 10:33-0400 Body weight 84.82 kg No Primary Care Physician [facility] Encounters Encounter Date Encounter Type Care Provider Facility Start: 03-10-2025 End: 03-10-2025 Emergency department patient visit No Primary Care Physician -Emergency Department Work Phone: Start: 12-28-2024 End: 12-28-2024 Emergency department patient visit NONE PHYSICIAN Facility:[facility] Start: 12-28-2018 Patient encounter procedure Manpreet Wisdom Facility:[facility] Start: 07-14-2017 End: 07-14-2017 Emergency department patient visit AMADOU CAVANAUGH Facility:[facility] Start: 05-18-2017 End: 05-18-2017 Emergency department patient visit PK DEL [facility] Facility:[facility] Procedures Date Procedure Procedure Detail Performing Clinician Start: 03-10-2025 Plain chest X-ray No Pr imcadogan Care Physician Start: 03-10-2025 CT of head without contrast No Primary Care Physician Start: 03-10-2025 Estimated creatinine clearance No Primary Care Physician Plan of Treatment Date Care Activity Detail Author Start: 03-10-2025 [facility] Start: 03-10-2025 [facility] Patient referral [facility] Work Phone: Payers Date Payer Category Payer Medicaid [id number] 2018 Private Health Insurance [id number] 2018 Self-pay 2017 Medicaid [id number] 2015 Private Health Insurance [employer] [id number] 2015 Unknown [employer] [id number] 1975 Unknown [id number] Unknown [employer] [id number] Social History Date Type Detail Facility Start: [facility]-10-[facility] Start: 10-25-2015 Alcohol Alcohol [facility] Start: 10-25-2015 Drugs Drugs [facility] Start: 10-25-2015 Lives Lives [facility] Start: 1975 Sex Assigned At Female [facility] Mental Status Date Assessment Result Facility 03-10-2025 Cognitive function Level Of Cons ciousness Awake;Alert;Appropriate;Follow s Commands [facility] Work Phone: Discharge summary 03-10-2025 Note Date & Type Note Facility 03-10-2025 Discharge summary Note Date/Time March 10, 2025 1:54pm [facility] Medical Records Department [address] [place] [address] Emergency Department Summary 03/10/25 MR#: [id number] Acct: [id number] Name: CHANDANA JETT Rep #:[id number] : 1975 49 From: Santos Tim DO PCP: Care Physician,No Primary Status :REG ER Location: ED HPI History of Present Illness Chief Complaint: General Illness Narrative Narrative: Patient is a 49-year-old female who presented to the emergency department the chief complaint of not feeling well overall. Patient states that she was in herIOP class and she noted that she told the individuals there that she had not been feeling well therefore they advised her to come here to the emergency department. Patient states that yesterday she woke up and felt like her left arm was heavier than normal but notes that she attributed this to her arms always having weird numbness and tingling secondary to disc issues in her neck she states. She states that she also has been having some left sided rib/flank pain and elevated blood pressure recently. Patient states that she had a Vivitrol injection back on the sixth of this month and states that ever since then she has had a headache that has been constant. States that this is unchanged and does not want a thing for her headache here in the emergency department. Patient denies any history of blood clots denies any recent travel history. PFSH PFS Home Medications ?Medication ?Instructions ?Recorded ?Last Taken ?Type diluent,naltrexone microsphere IM QMONTH 03/10/25 06/0 03/09 History Allergy/AdvReac Type Severity Reaction Status Date / Time cephalexin monohydrate (From Allergy thinks a Verified 03/10/25 10:33 Keflex) Rash metronidazole (From Flagyl) Allergy Unknown Verified 03/10/25 10:33 Sulfa (Sulfonamide Allergy thinks a Verified 03/10/25 10:33 Antibiotics) rash Social History Smoking Status: Current every day smoker tobacco type: cigarettes ROS ROS ED ROS Narrative Constitutional: Denies fevers, chills, lightheadedness, dizziness Eyes: Denies double vision blurry vision changes vision Cardiovascular: Denies chest pain or palpitations Respiratory: Denies coughing wheezing shortness of breath Abdomen: Denies abdominal pain nausea vomit diarrhea : Denies urinary symptoms Neurological: Denies numbness, wheeze, tingling Musculoskeletal: Denies back pain Skin: Denies any rashes or lesions EXAM Physical Exam Narrative Exam Narrative: General: Patient was lying in bed rest comfortably do not appear to be acute distress Head: Atraumatic, normocephalic Eyes: PERRL bilaterally, EOMI bilateral, no conjunctival injection noted Neck: Soft, supple, trachea midline Cardiovascular: Regular in rhythm no murmurs gallops rubs noted Respiratory: Clear to auscultation bilaterally no rales rhonchi or wheezes noted Abdomen: Soft, nondistended, no tenderness palpation Extremities: +5/5 strength noted in the bilateral upper and lower extremities, radial pulses +2/4 in the bilateral extremities, no pedal edema on exam Neurological: Patient following commands knew that she was at [facility] year is 2024 sensation grossly intact. Patient completed finger-nose testing bilaterally without any difficulty. NIH of 0 GCS 15 Skin: Warm, dry, tact no rashes or lesions noted Const Vital Signs: 03/10/25 10:33 03/10/25 10:43 03/10/25 11:11 Temperature 98.1 F Temperature Source Oral Pulse Rate 70 Respiratory Rate 14 Respiratory Effort Normal Non-Labored Respiratory Pattern Normal Blood Pressure 147/88 H Blood Pressure Mean 107 Pulse Ox 100 Oxygen Delivery Method Room Air Room Air 03/10/25 11:17 03/10/25 13:00 Temperature Temperature Source Pulse Rate 81 76 Respiratory Rate 16 14 Respiratory Effort Respiratory Pattern Blood Pressure 134/93 H 119/79 Blood Pressure Mean 106 92 Pulse Ox 99 98 Oxygen Delivery Method Room Air Room Air MDM MDM MDM Narrative Medical decision making narrative: Patient is a 41-year-old female who presented to the emergency department the chief complaint of left rib/back pain left arm heaviness and not feeling well overall with concern of hypertension for the last several days as well. On the differential diagnosis includes but not limited to intracranial hemorrhage, ischemic stroke, central venous sinus thrombosis, ACS, cervical radiculopathy. Once workup is obtained reviewed she will be reevaluated. Once again the patient stated that she woke up with her symptoms yesterday morning and are unchanged. Jackson Score (Revised) for Pulmonary Embolism from [employer] on 03/10/2025 All calculations should be rechecked by clinician prior to use RESULT SUMMARY: 3 points Low risk group: 7-9% incidence of PE from several studies. INPUTS: Age >65 ?> 0 = No Previous DVT or PE ?> 0 = No Surgery (under general anesthesia) or lower limb fracture in past month ?> 0 = No Active malignant condition ?> 0 = No Unilateral lower limb pain ?> 0 = No Hemoptysis ?> 0 = No Heart rate ?> 3 = 75-94 Pain on lower limb palpation and unilateral edema ?> 0 = No Patient's CBC reviewed showed no evidence of cytosis white blood count 10.1, he was 14, plate count within to be 400. Patient sodium was normal at 139, potassium of 4.5, creatinine normal at 0.76. Patient's AST and ALT are 21 and 18 respectively, troponin was less than 6 with a delta troponin of less than 6. Patient lipase normal at 19. Patient's EKG reviewed showed sinus rhythm with a rate of 78 bpm with NC interval 152. Patient's chest x-ray reviewed by myself and by radiology showed no acute cardiopulmonary processes. Patient CT head andbrain without contrast showed no acute intracranial pathology. Reevaluation the patient she is feeling better she would like to go home at thispoint time. Patient was vies to return with worsening symptoms or any concerns. She is vies follow-up with her doctor in outpatient setting all question concerns answered she was discharged home in stable condition Lab Data Labs: Laboratory Results - last 24 hr 03/10/25 03/10/25 03/10/25 10:55 11:35 12:35 WBC 10.1 RBC 4.55 Hgb 14.0 Hct 41.8 MCV 91.9 MCH 30.8 MCHC 33.5 RDW Std Deviation 44.6 H RDW Coeff of Lauren 13.2 Plt Count 400 MPV 9.0 Immature Gran % (Auto) 0.600 Neut % (Auto) 66.5 Lymph % (Auto) 24.4 [place] % (Auto) 5.3 Eos % (Auto) 2.4 Baso % (Auto) 0.8 Absolute Neuts (auto) 6.7 Absolute Lymphs (auto) 2.45 Nucleated RBC % 0 Sodium 139 Potassium 4.5 Chloride 104 Carbon Dioxide 24.2 Anion Gap 11 BUN 14 Creatinine 0.76 Estim Creat Clear Calc 101.31 Est GFR (MDRD) Non-Af 96 BUN/Creatinine Ratio 18.0 Glucose 104 H Calcium 9.5 Total Bilirubin 0.48 Direct Bilirubin 0.17 AST 21 ALT 18 Alkaline Phosphatase 62 Troponin T High Sens < 6 Troponin T Hi Sens 2 Hr < 6 Total Protein 7.2 Albumin 4.4 Globulin 2.8 Lipase 19 Radiography Diagnostic Testing: Clinical Impression(s) from Imaging Studies Brain CT 03/10/25 11:26 IMPRESSION: No acute intracranial pathology. Results were communicated to Dr. Tim by Dr. Beaver at the time of dictation. Reading Location: [facility] Chest X-Ray 03/10/25 11:28 IMPRESSION: Lungs appear clear throughout. No pleural effusion or pneumothorax is noted. The cardiomediastinal silhouette is within the normal range. No significant osseous abnormality is seen. Negative examination. Reading Location: [place] [address] Discharge Plan Triage Chief Complaint: General Illness ED Provider: Santos Tim Dx/Rx/DC Orders Clinical Impression: Chest pain Prescriptions: No Action diluent,naltrexone microsphere [Diluent For Vivitrol] IM QMONTH Primary Care Provider: Care Physician,No Primary Referrals: Care Physician,No Primary [Primary Care Provider] - Erum Moore, CONCRET[employer] JOURNEYMAN-C [[facility]] - Activity Restrictions/Additional Instructions: Follow-up with your doctor in the outpatient setting. Return with worsening symptoms or other concerns. Your blood work did not show any acute findings today here and your CT of your head and your chest x-ray did not show any acute findings either. Print Language: Ugandan Disposition Disposition: Home, Self Care What to do if you have Problems For any increased pain, shortness of breath, bleeding, nausea or vomiting, chestpain, or any unexpected problems, contact your Primary Care Provider. Call [facility] ([phone]) or report to the closest Emergency Room. Call 911 if necessary. 03/10/25 1354 <Electronically signed by Santos Tim DO> Cosigner Signature (if applicable): CC: No Primary Care Physician ~ Signed [facility] Work Phone: Discharge summary 03-10-2025 Note Date & Type Note Facility 03-10-2025 Discharge summary [facility] Radiology Diagnostic study note 03-10-2025 Note Date & Type Note Facility 03-10-2025 Radiology Diagnostic study note [facility] Imaging Services [address] [place], [place] [address] Chest 1 View (Portable) MR#: [id number] Acct: [id number] Name: JOHNIECHANDANA Rep #: [id number] : 1975 F 49 From: Rey Zurita MD PCP: Care Physician,No Primary Status: REG ER Study:Chest 1 View (Portable) Date of Exam: 03/10/25 Exam# [id number] Ordering Dr: Britney Tim DO PROCEDURE: CHEST 1 VIEW (PORTABLE) 03/10/2025 REASON FOR EXAM: CHEST PAIN TECHNIQUE: Frontal view of the chest. COMPARISON: None provided. RAD/Chest 1 View (Portable) IMPRESSION: Lungs appear clear throughout. No pleural effusion or pneumothorax is noted. The cardiomediastinal silhouette is within the normal range. No significant osseous abnormality is seen. Negative examination. Reading Location: [place] [address] CC: Dr. Santos Tim DO; No Primary Care Physician ~ Noteman: Signed [facility] Radiology Diagnostic study note 03-10-2025 Note Date & Type Note Facility 03-10-2025 Radiology Diagnostic study note [facility] Imaging Services [address] [address] [address] [place], [place] [address] Brain/Head without Contrast MR#: [id number] Acct: [id number] Name: JOHNIECHANDANA Rep #: [id number] : 1975 F 49 From: Ronald Beaver MD PCP: Care Physician,No Primary Status: REG ER Study:Brain/Head without Contrast Date of Exa m: 03/10/25 Exam# [id number] Ordering Dr: Britney Tim DO EXAM: NONCONTRAST CT SCAN OF THE HEAD CLINICAL HISTORY: Left arm heaviness COMPARISON: None TECHNIQUE: Serial axial series through the head were obtained without contrast. 2-D coronaland sagittal reformats were then obtained. DLP: 846.73 mGycm FINDINGS: Brain: There is no acute large territorial infarct, intracranial hemorrhage, midline shift or mass effect. The sella and pineal gland regions appear unremarkable. There is no evidence of cerebellar tonsillarherniation. Ventricles: There is no acute hydrocephalus. Basilar cisterns are patent. Paranasal sinuses: Well-aerated Mastoid air cells: Well-aerated. Calvarium: The bony calvarium is intact. Orbits: The bilateral globes are symmetric, without retrobulbar compressive masslesion or hemorrhage. CT/Brain/Head without Contrast IMPRESSION: No acute intracranial pathology. Results were communicated to Dr. Tim by Dr. Beaver at the time of dictation. Reading Location: [facility] CC: Dr. Santos Tim, DO; No Primary Care Physician ~ Noteman: Signed [facility] Evaluation note Note Date & Type Note Facility Evaluation note No assessment information availa ble [facility] Work Phone: Hospital Discharge instructions Note Date & Type Note Facility Hospital Discharge instructions Additional Instructions Follow-up with your doctor in the outpatient setting. Return with worsening symptoms or other concerns. Your blood work did not show any acute findings today here and your CT of your head and your chest x-ray did not show any acute findings either. [facility] Work Phone: Reason for referral (narrative) Note Date & Type Note Facility Reason for referral (narrative) No reason for referral information available [facility] Work Phone: Summary Purpose Family History No Family History Records FoundNo Family History Records FoundNo Family History Records FoundNo Family History Records Found Advance Directives Advance Directive Response Recorded Date/ Time Do you have a Healthcare Power of [employer]? No March 10, 2025 11:10am Advance Directives No May 8:07pm Chief Complaint and Reason for Visit Chief Complaint Admit Date FLANK PAIN, ARM HEAVINESS March 10 10:31am Additional Source Comments INFORMATION SOURCE (unrecogn ized section and content) DATE CREATED AUTHOR 03/10/2018 [facility] ([place]) DATE CREATED AUTHOR AUTHOR'S ORGANIZ ATION 03/11/2018 [facility] DATE CREATED AUTHOR AUTHOR'S ORGANIZ ATION 12/28/2018 [facility] DATE CREATED AUTHOR AUTHOR'S ORGANIZ ATION 03/06/2025 [facility] Care Teams (unrecognized sec tion and content) Team Status: Active Member Role Status Dates No Primary Care Physician Primary Care Provider Active Team Status: Inactive Member Role Status Dates No Primary Care Physician Primary Care Provider Active Start: March 10, 2025 End: March 10, 2025 Dr. Santos Tim , DO Emergency Provider Active Start: March 10, 2025 End: March 10, 2025 Goals (unrecognized section and content) Goals may be documented in a n alternate section FOR RECORDS PERTAINING TO PATIENTS WHO ARE OR HAVE BEEN ENROLLED IN A CHEMICAL DEPENDENCY/SUBSTANCEABUSE PROGRAM, SOME INFORMATION MAY BE OMITTED. This clinical summary was aggregated from multiple sources. Caution should be exercised in using it in the provision of clinical care. This summary normalizes information from multiple sources, and as a consequence, information in this document may materially change the coding, format and clinical context of patient data. In addition, data may be omitted in some cases. CLINICAL DECISIONS SHOULD BE BASED ON THE PRIMARY CLINICAL RECORDS. [email or web address] [facility]. provides no warranty or guarantee of the accuracy or completeness of information in this document.
== END 2025-03-10 14:16 | disposition home or self-care (01) ==
PROVIDERS: Emergency Provider Emergency Medicine; Visit Provider Emergency Medicine
DX: R07.9 Chest pain, unspecified (principal); F17.210 Nicotine dependence, cigarettes, uncomplicated
CPT/HCPCS: 70450; 71045; 80048; 80076; 83690; 84484; 85025; 93005; 99283; A4216